=== PATIENT | male | born 1980 | race Caucasian/White ===

== ENCOUNTER → 2016-07-15 | Outpatient (CLI) | payer OTHER ==
[2016-07-15 08:45] LABS: Basophils # (A) 0.1 k/uL (0-0.2); Basophils % (A) 1 %; CH 29.6; CHCM 34.8; Eosinophils # (A) 0.2 k/uL (0-0.7); Eosinophils % (A) 3 %; HCT 44.4 % (39.0-53.0); HGB 14.8 gm/dL (13.0-17.5); Luc # (Auto) 0.16; Luc % (Auto) 2; Lymphocytes # (A) 2.1 k/uL (1.0-4.8); Lymphocytes % (A) 30 %; MCH 28.5 pg (25.0-35.0); MCHC 33.4 g/dL (31.0-37.0); MCV 85.4 fL (80.0-100.0); Mean Platelet Volume 6.9; Monocytes # (A) 0.5 k/uL (0-1.0); Monocytes % (A) 7 %; Neutrophils % (A) 58 %; RDW 12.9 % (11.5-15.5); WBC (Perox) 7.12
[2016-07-15 10:40] LABS: ALT 42 U/L (21-72); AST 21 U/L (17-59); Alkaline Phosphatase 63 U/L (38-126); Anion Gap 8 mmol/L; Blood Urea Nitrogen 20 mg/dL (9-20); Calcium 9.3 mg/dL (8.4-10.2); Carbon Dioxide 30 mmol/L (22-30); Chloride 105 mmol/L (98-107); Cholesterol 144 mg/dL (<200); Creatine Kinase 93 U/L (55-170); Glucose 103 mg/dL (74-99); HDL Cholesterol 50 mg/dL (40-60); Non-African American GFR(MDRD) >60 (>60 ml/min/1.73 sqM); Potassium 4.5 mmol/L (3.5-5.1); Sodium 143 mmol/L (137-145); Total Bilirubin 0.5 mg/dL (0.2-1.3); Triglycerides 59 mg/dL (<150)
[2016-07-15 11:28] LABS: Hepatitis C Virus IgG Index 0.01
[2016-07-15 11:30] LABS: Hemoglobin A1C 5.3 % (4.2-6.1); Hepatitis C Virus IgG Ab Negative (Negative)
[2016-07-15 11:33] LABS: Erythrocyte Sedimentation Rate 2 mm/hr (0-15)
[2016-07-15 11:46] LABS: C Reactive Protein <5.0 mg/L (<10.0)
== END | disposition home or self-care (01) ==
LOC: LABWHC1 08:15
PROVIDERS: ATTEND Internal Medicine
DX: Z00.00 Encounter for general adult medical examination without abnormal findings (principal); E87.8 Other disorders of electrolyte and fluid balance, not elsewhere classified; E78.5 Hyperlipidemia, unspecified; E55.9 Vitamin D deficiency, unspecified; G89.4 Chronic pain syndrome; Z98.890 Other specified postprocedural states
CPT/HCPCS: 36415; 80053; 80061; 82306; 82550; 83036; 84443; 85025; 85652; 86140; 86803

== ENCOUNTER → 2017-01-15 | Outpatient (CLI) | payer OTHER ==
--- NOTE | 2017-01-15 12:20 | XR ---
EXAMINATION TYPE: XR Hip Complete LT DATE OF EXAM: 01/15/2017 CLINICAL HISTORY: Left hip pain for 3 months with no known injury TECHNIQUE: AP and frogleg views of the left hip are obtained. COMPARISON: 01/22/2013. FINDINGS: There is no acute fracture/dislocation evident in the left hip. Acetabular sclerosis and c ephalad joint space narrowing relate to underlying mild to moderate osteoarthritic changes. Osseous f ragment along the psoas musculature may relate to sequela of prior injury or small osteophyte as ther e is no donor site from the lesser tuberosity and the cortex along Shenton's line is smooth. Addition ally this is circumferentially well-corticated relating to remote injury. The overlying soft tissue appears unremarkable. IMPRESSION: There is no acute fracture or dislocation in the left hip. Mild to moderate osteoporotic changes of the left femoral acetabular joint.
[2017-01-15 12:59] LABS: Basophils # (A) 0.1 k/uL (0-0.2); Basophils % (A) 1 %; CH 29.1; CHCM 35.2; Eosinophils # (A) 0.1 k/uL (0-0.7); Eosinophils % (A) 2 %; HCT 42.8 % (39.0-53.0); HDW 2.97; Luc % (Auto) 2; Lymphocytes # (A) 2.1 k/uL (1.0-4.8); Lymphocytes % (A) 33 %; MCH 29.1 pg (25.0-35.0); MCV 83.2 fL (80.0-100.0); Mean Platelet Volume 7.2; Monocytes # (A) 0.4 k/uL (0-1.0); Monocytes % (A) 6 %; Neutrophils # (A) 3.5 k/uL (1.3-7.7); Neutrophils % (A) 56 %; RBC 5.15 m/uL (4.30-5.90); RDW 12.8 % (11.5-15.5); WBC 6.2 k/uL (3.8-10.6); WBC (Perox) 5.91
== END | disposition home or self-care (01) ==
LOC: LABWHC1 11:54
PROVIDERS: ATTEND Internal Medicine
DX: M25.552 Pain in left hip (principal); M70.72 Other bursitis of hip, left hip
CPT/HCPCS: 36415; 73502; 85025

== ENCOUNTER → 2018-03-19 | Outpatient (CLI) | payer OTHER ==
[2018-03-19 09:04] LABS: Basophils % (A) 1 %; Eosinophils # (A) 0.1 k/uL (0-0.7); Eosinophils % (A) 2 %; HCT 45.8 % (39.0-53.0); HGB 14.8 gm/dL (13.0-17.5); Lymphocytes # (A) 1.6 k/uL (1.0-4.8); Lymphocytes % (A) 28 %; MCH 28.3 pg (25.0-35.0); MCHC 32.3 g/dL (31.0-37.0); MCV 87.4 fL (80.0-100.0); Monocytes # (A) 0.4 k/uL (0-1.0); Monocytes % (A) 6 %; Neutrophils # (A) 3.5 k/uL (1.3-7.7); Neutrophils % (A) 61 %; Platelet Count 232 k/uL (150-450); RBC 5.25 m/uL (4.30-5.90); WBC 5.7 k/uL (3.8-10.6)
[2018-03-19 10:22] LABS: ALT 22 U/L (21-72); AST 19 U/L (17-59); Alkaline Phosphatase 43 U/L (38-126); Anion Gap 6 mmol/L; Blood Urea Nitrogen 20 mg/dL (9-20); C Reactive Protein <5.0 mg/L (<10.0); Carbon Dioxide 27 mmol/L (22-30); Chloride 108 mmol/L (98-107); Cholesterol 161 mg/dL (<200); Creatine Kinase 110 U/L (55-170); Glucose 98 mg/dL (74-99); HDL Cholesterol 49 mg/dL (40-60); LDL Cholesterol,Calculated 104 mg/dL (0-99); Potassium 4.5 mmol/L (3.5-5.1); Sodium 141 mmol/L (137-145); Total Bilirubin 0.7 mg/dL (0.2-1.3); Total Protein 6.6 g/dL (6.3-8.2); Triglycerides 39 mg/dL (<150)
[2018-03-19 11:19] LABS: Erythrocyte Sedimentation Rate 2 mm/hr (0-15)
== END | disposition home or self-care (01) ==
LOC: LABWHC1 08:03
PROVIDERS: ATTEND Internal Medicine
DX: E78.5 Hyperlipidemia, unspecified (principal); E55.9 Vitamin D deficiency, unspecified; M81.0 Age-related osteoporosis without current pathological fracture; I10 Essential (primary) hypertension
CPT/HCPCS: 36415; 80053; 80061; 82306; 82550; 84443; 85025; 85652; 86140

== ENCOUNTER → 2022-11-08 | Outpatient (CLI) | payer OTHER ==
--- NOTE | 2022-11-08 07:57 | US ---
EXAMINATION TYPE: US thyroid st tissue head/neck DATE OF EXAM: 11/08/2022 COMPARISON: EXAMINATION TYPE: US thyroid st tissue head/neck DATE OF EXAM: 11/08/2022 COMPARISON: CT brain and cervical spine January 22, 2013 CLINICAL INDICATION: Male, 42 years old with history of R220 CYST; Lump on back of head right side. TECHNIQUE: FINDINGS: Hypoechoic area seen right side of head measuring 3.1 x 0.7 x 2.9 cm. Oval small circumscribed hypoechoic area in the subcutaneous tissue below the dermal layer but superf icial to the deeper muscles IMPRESSION: As above. Lesion of uncertain etiology but suspected nonaggressive such as benign lipoma based on small size and well-circumscribed margins and subcutaneous location. This can be better edie luated with CT if desired.
[2022-11-08 10:51] LABS: Basophils # (A) 0.08 X 10*3/uL (0.00-0.10); Basophils % (A) 1.3 %; Eosinophils # (A) 0.12 X 10*3/uL (0.04-0.35); Eosinophils % (A) 1.9 %; HCT 43.7 % (39.6-50.0); HGB 14.6 g/dL (13.0-17.0); Immature Grans, Automated 0.2 %; Lymphocytes # (A) 2.01 X 10*3/uL (0.90-5.00); MCH 28.6 pg (27.0-32.0); MCHC 33.4 g/dL (32.0-37.0); MCV 85.7 fL (80.0-97.0); Mean Platelet Volume 9.9 fL (9.5-12.2); Monocytes # (A) 0.58 X 10*3/uL (0.20-1.00); Monocytes % (A) 9.2 %; NRBC Per 100 WBC 0 /100 WBCS (0.0-0.0); Neutrophils # (A) 3.49 X 10*3/uL (1.80-7.70); Neutrophils % (A) 55.4 %; Platelet Count 244 X 10*3/uL (140-440); RDW 13.1 % (11.5-14.5); WBC 6.29 X 10*3/uL (4.50-10.00)
[2022-11-08 11:22] LABS: % Iron Saturation 38.46 (15.00-50.00); ALT 19 U/L (10-49); AST 19 U/L (14-35); African American GFR (CKD) 82.2 (60.0-200.0); Albumin 4.1 g/dL (3.8-4.9); Albumin/Globulin Ratio 2.27 (1.60-3.17); Alkaline Phosphatase 49 U/L (41-126); Calcium 8.9 mg/dL (8.7-10.3); Carbon Dioxide 26.9 mmol/L (20.0-27.5); Chloride 107 mmol/L (96-109); Creatine Kinase 224 U/L (35-257); Ferritin 64.3 ng/mL (22.0-322.0); Globulin 1.8 g/dL (1.6-3.3); Glucose 108 mg/dL (70-110); Iron 119 ug/dL (65-175); Phosphorus 3.7 mg/dL (2.4-5.1); Potassium 4.5 mmol/L (3.5-5.5); Sodium 143 mmol/L (135-145); Total Iron Binding Capacity 309 ug/dL (228-460); Total Protein 5.9 g/dL (6.2-8.2)
[2022-11-08 11:30] LABS: C Reactive Protein <0.30 mg/dL (0.00-0.80); Chol/HDL Ratio 2.62 Ratio; LDL Cholesterol,Calculated 83.3 mg/dL (0.0-131.0); VLDL Calculation 8.76 mg/dL (5.00-40.00)
[2022-11-08 11:48] LABS: Erythrocyte Sedimentation Rate 1 mm/Hr (0-15)
== END | disposition home or self-care (01) ==
LOC: RADUSWWP 07:00
PROVIDERS: ATTEND Internal Medicine
DX: Z00.00 Encounter for general adult medical examination without abnormal findings (principal); R22.0 Localized swelling, mass and lump, head; D64.9 Anemia, unspecified; E87.8 Other disorders of electrolyte and fluid balance, not elsewhere classified; E03.9 Hypothyroidism, unspecified; E78.5 Hyperlipidemia, unspecified
CPT/HCPCS: 76536; 80053; 80061; 82306; 82550; 82728; 83036; 83540; 83550; 84100; 84443; 85025; 85652; 86140

== ENCOUNTER → 2022-12-16 | Outpatient (CLI) | payer OTHER ==
--- NOTE | 2022-12-16 12:04 | XR ---
EXAMINATION TYPE: XR lumbosacral spine min 4V DATE OF EXAM: 12/16/2022 COMPARISON: 01/22/2013 HISTORY: Osteoporosis lower leg cramping back surgery TECHNIQUE: 5 view lumbar spine FINDINGS: There are 5 lumbar-type vertebral bodies. Pedicles are intact. L1 ribs may be articulating. No spondylolytic defects are evident. Facets appear normal. There is narrowing of the disc height at L5-S1. Remaining disc heights are preserved. Vertebral body heights are preserved. IMPRESSION: 1. Disc changes L5-S1
--- NOTE | 2022-12-16 12:05 | XR ---
EXAMINATION TYPE: XR shoulder complete LT DATE OF EXAM: 12/16/2022 COMPARISON: NONE HISTORY: Pain TECHNIQUE: Shoulder examined in 3 projections. FINDINGS: The humeral head articulates with the glenoid. The acromio-clavicular junction is normal. No acute fractures or dislocations are evident. A follow up study can be performed 7-10 days from acute trauma for continued pain. MRI can be perfor med if soft tissue evaluation would be of benefit. IMPRESSION: 1. No acute osseous shoulder abnormality.
== END | disposition home or self-care (01) ==
LOC: RADXRMAIN 11:31
PROVIDERS: ATTEND Internal Medicine
DX: M51.37 Other intervertebral disc degeneration, lumbosacral region (principal); M81.0 Age-related osteoporosis without current pathological fracture; M25.512 Pain in left shoulder
CPT/HCPCS: 72110